=== PATIENT | male | born 1970 | race Caucasian/White ===

== ENCOUNTER 2017-08-29 12:34 | Emergency (ER) | payer OTHER ==
[~2017-08-29] VITALS: Ht 175.2 cm; Wt 86.2 kg
[2017-08-29] MEDS ORDERED: AMLODIPINE BESY10 MG PO (12:59)
[2017-08-29] MEDS ORDERED: PROAIR HFA8.5 GM INH (12:59)
[2017-08-29] MEDS ORDERED: NAPROSYN500 MG PO (13:33)
[2017-08-29] MEDS ORDERED: CHLORZOXAZONE500 M2 PO (14:26)
== END 2017-08-29 14:31 | disposition home or self-care (01) ==
LOC: ED 12:34
DX: S20.212A Contusion of left front wall of thorax, initial encounter (principal); R03.0 Elevated blood-pressure reading, without diagnosis of hypertension; F17.200 Nicotine dependence, unspecified, uncomplicated; Z79.899 Other long term (current) drug therapy; Z88.1 Allergy status to other antibiotic agents; Z88.8 Allergy status to other drugs, medicaments and biological substances; W10.8XXA Fall (on) (from) other stairs and steps, initial encounter; Y93.89 Activity, other specified; Y92.89 Other specified places as the place of occurrence of the external cause; Y99.9 Unspecified external cause status